=== PATIENT | female | born 1995 | race Native Hawaiian/Other Pacific Islander ===

== ENCOUNTER 2017-10-08 16:27 | Emergency (ER) | payer MEDICAID ==
[2017-10-08 16:36] VITALS: O2SAT 98
[2017-10-08] MEDS ORDERED: Albuterol-Ipratrop 3 mg / 0.5 (3 ml) UD INH STA (16:55)
[2017-10-08] MEDS ORDERED: Albuterol-Ipratrop 3 mg / 0.5 (3 ml) UD ONE (17:05)
[2017-10-08 17:26] LABS: RBC URINE 16 /hpf (0-3); URINE BACTERIA FEW (<OCC); URINE BILIRUBIN NEGATIVE (NEGATIVE); URINE BLOOD NEGATIVE (NEGATIVE); URINE COLOR Yellow (YELLOW); URINE GLUCOSE (UA) NORMAL (Normal); URINE KETONE TRACE mg/dL (NEGATIVE); URINE LEUKOCYTE ESTERASE 3+ Leu/uL (Negative); URINE PROTEIN 1+ mg/dL (NEGATIVE); URINE UROBILINOGEN NORMAL mg/dL (0.2-1.0); WBC URINE 65 /hpf (0-5)
--- NOTE | 2017-10-08 17:41 | C.PDOC ---
History Of Present Illness 21 year old female, who is currently around 31 weeks , presents to the ED for evaluation of a dry nonproductive cough which began around 3 weeks ago. Patient has been trying at-home remedies, such as drinking tea with lemon, without significant relief. Patient notes sick contact with other family members who have been experiencing similar symptoms at home. Patient denies fever, chills, chest pain, abdominal pain, vomiting, vaginal bleeding/ discharge. Time Seen by Provider: 10/08/17 16:40 Chief Complaint (Nursing): Flu-like Symptoms History Per: Patient History/Exam Limitations: no limitations Onset/Duration Of Symptoms: Other (3 weeks ) Current Symptoms Are (Timing): Still Present Sick Contacts (Context): Family Member(s) Associated Symptoms: Cough, Sputum. denies: Fever, Chills Ear Symptoms: Bilateral: None Additional History Per: Patient Past Medical History Reviewed: Historical Data, Nursing Documentation, Vital Signs Vital Signs: Last Vital Signs Temp 97.8 F 10/08/17 17:53 Pulse 85 10/08/17 17:53 Resp 18 10/08/17 17:53 BP 130/70 10/08/17 17:53 Pulse Ox 98 10/08/17 22:52 - Medical History PMH: No Chronic Diseases Surgical History: No Surg Hx Family History: States: Unknown Family Hx Review Of Systems Constitutional: Negative for: Fever, Chills Respiratory: Positive for: Cough. Negative for: Sputum Physical Exam - Physical Exam Appears: Non-toxic, No Acute Distress, Other (obese ) Skin: Normal Color, Warm, Dry Head: Atraumatic, Normacephalic Eye(s): bilateral: Normal Inspection Ear(s): Bilateral: Normal Nose: Normal, No Discharge Oral Mucosa: Moist Throat: Normal, No Erythema, No Exudate Neck: Supple Chest: Symmetrical, No Deformity, No Tenderness Cardiovascular: Rhythm Regular, No Murmur Respiratory: Normal Breath Sounds, No Rales, No Rhonchi, No Wheezing Extremity: Normal ROM, Capillary Refill (less than 2 seconds ) Neurological/Psych: Oriented x3, Normal Speech, Normal Cognition Gait: Steady ED Course And Treatment - Laboratory Results Lab Interpretation: Abnormal (UA 68 WBC's) O2 Sat by Pulse Oximetry: 98 (on RA ) Pulse Ox Interpretation: Normal Progress Note: loratidine, nebulized duoneb Reevaluation Time: 17:42 Reassessment Condition: Improved (much improved) Medical Decision Making Medical Decision Making: , viral syndrome, chronic cough with costochondritis, clear lungs, reactive airway, cough varient, many sick contacts @ home with same. Does NOT appear ill as Pertussus. Disposition Doctor Will See Patient In The: Office Counseled Patient/Family Regarding: Studies Performed, Diagnosis - Disposition Referrals: [facility] [Outside] [facility] [Outside] Disposition: HOME/ ROUTINE Disposition Time: 17:43 Condition: GOOD Additional Instructions: Cough: loratidine 10 mg daily- antihistamine reduces cough Nebulized treatments w Duoneb liquid ampules 2 ampules every 3-4 hours as needed Albuterol puffer 2 puffs using the Aerochamber Spacer (plastic tube) when not at home. Every 3-4 hours as needed UTI in 65 WBC's in urine Macrobid 100 mg twice a day to complete 5 days. Prescriptions: Albuterol HFA [Ventolin HFA 90 mcg/actuation (8 g)] 200 puff IH Q4H PRN #2 puff PRN Reason: Cough Albuterol/Ipratropium [Duoneb 3 MG/3 Ml-0.5 MG/3 Ml 3 Ml] 6 ml IH Q4H PRN #100 neb PRN Reason: asthma Loratadine 10 mg PO DAILY #10 capsule Nebulizer [Compact Compressor Nebulizer] 1 dev XX PRN PRN #1 dev PRN Reason: asthma Nitrofurantoin Macrocrystals [Macrobid] 100 mg PO BID #9 cap Spacer, Inhalation [Aerochamber] 1 dev IH DAILY #1 dev Instructions: Costochondritis (ED), Reactive Airways Disease (ED), Urinary Tract Infection in (ED) Forms: [employer] (Spanish) - Clinical Impression Clinical Impression: Viral syndrome, Cough, - Scribe Statement The provider has reviewed the documentation as recorded by the Scribe (Mariam Shah) Provider Attestation: All medical record entries made by the Scribe were at my direction and personally dictated by me. I have reviewed the chart and agree that the record accurately reflects my personal performance of the history, physical exam, medical decision making, and the department course for this patient. I have also personally directed, reviewed, and agree with the discharge instructions and disposition.
[2017-10-08 17:54] VITALS: BP 130/70; PULSE 85; RESP 18; TEMP 97.8
== END 2017-10-08 17:53 | disposition home or self-care (01) ==
LOC: C.ER 16:27
DX: O98.513 Other viral diseases complicating pregnancy, third trimester (principal); B34.9 Viral infection, unspecified; R05 Cough; Z3A.31 31 weeks gestation of pregnancy

== ENCOUNTER 2018-01-17 11:56 | Emergency (ER) | payer MEDICAID ==
[2018-01-17 12:12] VITALS: BMI 38.6
[2018-01-17 12:19] VITALS: TEMP 98.5
[2018-01-17] MEDS ORDERED: Tmp-Smz 800 mg-160 mg DS Tab PO STA (13:32)
--- NOTE | 2018-01-17 13:32 | C.PDOC ---
History Of Present Illness 22 y/o female presents to the ER complaining of right breast pain which has been present since yesterday. Patient notes that she had subjective fever today and she took Tylenol. Of note, patient delivered a baby on Dec 01, 2017 and she was for 2 days. However, she is currently not . Time Seen by Provider: 01/17/18 13:13 Chief Complaint (Nursing): Breast Problem History Per: Patient History/Exam Limitations: no limitations Onset/Duration Of Symptoms: Days Current Symptoms Are (Timing): Still Present Severity: Moderate Past Medical History Reviewed: Historical Data, Nursing Documentation, Vital Signs Vital Signs: Last Vital Signs Temp 98.5 F 01/17/18 12:12 Pulse 88 01/17/18 14:08 Resp 18 01/17/18 14:08 BP 111/73 01/17/18 14:08 Pulse Ox 98 01/17/18 14:08 - Medical History PMH: Denies: Kidney Stones, Chronic Kidney Disease Surgical History: No Surg Hx Family History: States: No Known Family Hx - Social History Hx Alcohol Use: No Hx Substance Use: No Review Of Systems Musculoskeletal: Positive for: Other (breast pain) Physical Exam - Physical Exam Appears: Non-toxic, No Acute Distress Skin: Warm, Dry Head: Atraumatic, Normacephalic Eye(s): bilateral: Normal Inspection, EOMI Nose: Normal Oral Mucosa: Moist Neck: Normal ROM, Supple Lymphatic: No Axilla Node Tenderness Chest: Symmetrical, Other (Right breast: induration to the 2 o' clock area w/ erythema, no fluctuance, no discharge) Cardiovascular: Rhythm Regular Respiratory: Normal Breath Sounds, No Accessory Muscle Use, No Rales, No Rhonchi , No Wheezing Extremity: Normal ROM Neurological/Psych: Oriented x3, Normal Speech ED Course And Treatment O2 Sat by Pulse Oximetry: 99 (RA) Pulse Ox Interpretation: Normal Progress Note: Pt up to date on tetanus. Patient has been instructed on warm compresses. Patient has been advised to follow up with [facility] for wound check and return to ER if symtpoms persist or worsen. Case discussed with Dr Pimentel , agreed upon plan and treatment. Disposition - Disposition Disposition: HOME/ ROUTINE Disposition Time: 13:28 Condition: STABLE Additional Instructions: Warm compresses. Wound check in 2 days with your OBGYN. Return to ER if symptoms persist or worsen. Prescriptions: Cephalexin [cephalexin] 500 mg PO BID #14 cap Ibuprofen [Motrin] 600 mg PO Q6 PRN #20 tab PRN Reason: Pain, Mild (1-3) Sulfamethoxazole/Trimethoprim [Bactrim DS 800 mg-160 mg] 1 tab PO BID #14 tab Instructions: Cellulitis (ED) Forms: [employer] (Macedonian) - Clinical Impression Clinical Impression: Cellulitis of breast - PA / [employer] / Resident Statement MD/DO has reviewed & agrees with the documentation as recorded. - Scribe Statement The provider has reviewed the documentation as recorded by the Dwightibnorberto Jarvis Provider Attestation All medical record entries made by the Talib were at my direction and personally dictated by me. I have reviewed the chart and agree that the record accurately reflects my personal performance of the history, physical exam, medical decision making, and the department course for this patient. I have also personally directed, reviewed, and agree with the discharge instructions and disposition.
[2018-01-17] MEDS ORDERED: Tmp-Smz 800 mg-160 mg DS Tab ONE (13:48)
[2018-01-17 14:10] VITALS: BP 111/73; PULSE 88; RESP 18
[2018-01-17 18:25] VITALS: O2SAT 99
== END 2018-01-17 14:09 | disposition home or self-care (01) ==
LOC: C.ER 11:56
DX: N61.0 Mastitis without abscess (principal)